=== PATIENT | female | born 1950 | race Caucasian/White ===

== ENCOUNTER 2020-05-09 12:45 | Emergency (ER) | payer MEDICARE, OTHER ==
[2020-05-09] MEDS ORDERED: Sodium Chloride 0.9% 1000 ML 1,000 ML IV STA (12:50)
[2020-05-09] MEDS ORDERED: BENADRYL 50 MG/ML IV ONE (12:50)
[2020-05-09] MEDS ORDERED: Inapsine 5 MG/2 ML IV ONE (12:50)
[2020-05-09] MEDS ORDERED: ANTIVERT 25 MG PO ONE (12:51)
[2020-05-09 13:47] LABS: Absolute Neutrophil Ct (ANC) 10.78 (1.4-6.9); BASOPHIL % 0.3 % (0.0-0.4); Basophil (Absolute #) 0.04 (0-0.4); Eosinophil % 0.9 % (0.00-5.0); Eosinophil (Absolute #) 0.12 (0-0.5); Hematocrit 40.5 % (35-47); Hemoglobin 12.9 gm/dl (12.0-16.0); Lymphocyte (Absolute #) 1.18 (1.0-4.6); Mean Cell Volume 92.5 fl (78-100); Mean Corpuscular Hemoglobin 29.5 pg (26-32); Mean Corpuscular Hgb Concent. 31.9 g/dl (32-36); Mean Platelet Volume 10.3 fl (7.5-11.0); Monocyte (Absolute #) 0.99 (0.0-1.3); Monocytes % 7.6 % (0.0-12.0); Neutrophil % 82.2 % (36.0-66.0); Platelet Count 229 K/mm3 (150-450); Red Blood Count 4.38 M/mm3 (4.1-5.4); Red Cell Distribution Width 15.8 % (11.5-14.0); White Blood Count 13.1 K/mm3 (4.0-10.5)
--- NOTE | 2020-05-09 14:09 | ERPHSYRPT ---
- History of Present Illness Patient Subjective Stated Complaint: " I have been feeling off balance and don' t know why. I basically live at home alone and sometimes it worries me because sometimes I need help to the bathroom and stuff. A week or so ago I thought I had a ear infection but my ear doesn't hurt now. I'm not in any pain but I do feel like I have nausea and I have been dry heaving this morning." Triage Nursing Assessment: Pt presents to ER with complaints of dizziness and insability. Pt is alert and oriented x 3. Pupils PERRL. Denies any recent falls or injury. Pt skin is pink/warm/dry. Pt denies any pain. Resp are easy and unlabored. Lung sounds clear and equal throughout. Pt denies cough. Abd is soft and nontender. Pt does state she has nausea and has been dry heaving today. Pt denies fever, chills, or body aches. Noted that pt is constantly moving her feet while laying in bed, denies being cold. Appears anxious. Pulses present x 4 extremities strong. States has unsteady and weak gait. ASSESSMENT AND TRIAGE COMPLETED BY CATHRYN ANGELA RN mistakenly done on ROYCE ARMENTA'S [employer] log on. Physician History: Patient is here with dizziness. She does describe symptoms of vertigo for the past 3 days. States that she is asymptomatic when she lays flat. She states that when she sits up and looks to her left is made worse. She has no falls or other trauma. Patient states that she has no chest pain, shortness of breath, nausea, vomiting. States that she has never been diagnosed with vertigo or had episodes of dizziness in the past. Location: generalized Quality: dizziness and vertigo Radiation: none Severity: moderate Duration: 3 days Timing: suddenly Modifying factors/associated signs and symptoms: none tried Timing/Duration: today Severity: mild Allergies/Adverse Reactions: fentanyl Allergy (Severe, Verified 05/09/20 13:03) Shortness of Breath acetaminophen [From Vicodin] Adverse Reaction (Mild, Verified 05/09/20 13:03) Nausea hydrocodone bitartrate [From Vicodin] Adverse Reaction (Mild, Verified 05/09/20 13:03) Nausea meperidine HCl [From Demerol] Adverse Reaction (Mild, Verified 05/09/20 13:03) Nausea Sulfa (Sulfonamide Antibiotics) [Sulfa(Sulfonamide Antibiotics)] Adverse Reaction (Mild, Verified 05/09/20 13:03) Nausea Home Medications: Levothyroxine Sodium 125 Mcg [Synthroid 125 Mcg] 137 mcg PO DAILY 09/21/13 [History] Meclizine HCl 25 mg PO QIDPRN PRN 09/21/13 [History] Duloxetine HCl [Cymbalta] 60 mg PO DAILY 02/27/15 [History] ALPRAZolam [Alprazolam] 05/09/20 [History] Aspirin 81 gm Chew [Baby Aspirin 81 mg Chew] 05/09/20 [History] Bupropion HCl [Wellbutrin Xl] 300 mg PO DAILY 05/09/20 [History] Carvedilol 3.125 mg [Coreg 3.125 MG] 05/09/20 [History] Cetirizine HCl [Zyrtec] 5 mg PO DAILY PRN PRN 05/09/20 [History] Clopidogrel Bisulfate [Plavix] 75 tab PO DAILY 05/09/20 [History] Glycerin [Colace] 1 tab RC DAILY 05/09/20 [History] Nitroglycerin 0.4 mg SL Q4H PRN PRN 05/09/20 [History] Oxycodone HCl/Acetaminophen [Oxycodon-Acetaminophen 2.5-300] 2 mg PO QID [History] Pantoprazole 20 mg [Protonix 20MG Tablet] 40 mg PO DAILY 05/09/20 [History ] Rosuvastatin Calcium [Crestor] 20 mg PO DAILY 05/09/20 [History] lisinopriL [Zestril] 2.5 tab PO DAILY 05/09/20 [History] Hx Tetanus, Diphtheria Vaccination/Date Given: Yes Hx Influenza Vaccination/Date Given: Yes Hx Pneumococcal Vaccination/Date Given: Yes Immunizations Up to Date: Yes Travel Risk - International Travel Have you traveled outside of the country in past 3 weeks: No - Coronavirus Screening Close contact with a COVID-19 positive Pt in past 14-21 Days: No - Review of Systems Constitutional: No Fever, No Chills Eyes: No Symptoms Ears, Nose, & Throat: No Symptoms Respiratory: No Cough, No Dyspnea Cardiac: No Chest Pain, No Edema, No Syncope Abdominal/Gastrointestinal: No Abdominal Pain, No Nausea, No Vomiting, No Diarrhea Genitourinary Symptoms: No Dysuria Musculoskeletal: No Back Pain, No Neck Pain Skin: No Rash Neurological: Dizziness, No Focal Weakness, No Sensory Changes Psychological: No Symptoms Endocrine: No Symptoms All Other Systems: Reviewed and Negative - Past Medical History Pertinent Past Medical History: Yes Neurological History: No Pertinent History ENT History: No Pertinent History Cardiac History: High Cholesterol, Myocardial Infarction (HI) Respiratory History: Bronchitis Endocrine Medical History: Diabetes Type II, Hypothyroidism Musculoskeletal History: Osteoarthritis GI Medical History: Diverticulitis History: Other Psycho-Social History: Anxiety, Depression Female Reproductive Disorders: Endometriosis Other Medical History: Chronic back pain, kidney stones, 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 PAIN IMPLANT on left side for back/spine, pancreatitis after cholecystectomy - Social History Smoking Status: Never smoker Exposure to second hand smoke: No Drug Use: none Patient Lives Alone: Yes - Nursing Vital Signs Nursing Vital Signs: Initial Vital Signs Temperature 98.9 F 05/09/20 12:50 Pulse Rate 106 H 05/09/20 12:50 Respiratory Rate 24 05/09/20 12:50 Blood Pressure 177/85 05/09/20 12:50 O2 Sat by Pulse Oximetry 97 05/09/20 12:50 Pain Scale Pain Intensity 0 - Physical Exam General Appearance: no apparent distress, alert Eye Exam: PERRL/EOMI, eyes nml inspection Ears, Nose, Throat Exam: normal ENT inspection, TMs normal, pharynx normal, moist mucous membranes Neck Exam: normal inspection, non-tender, supple, full range of motion Respiratory Exam: normal breath sounds, lungs clear, No respiratory distress Cardiovascular Exam: regular rate/rhythm, normal heart sounds, normal peripheral pulses Gastrointestinal/Abdomen Exam: soft, normal bowel sounds, No tenderness, No mass Back Exam: normal inspection, normal range of motion, No CVA tenderness, No vertebral tenderness Extremity Exam: normal inspection, normal range of motion, pelvis stable Neurologic Exam: alert, oriented x 3, cooperative, normal mood/affect, nml cerebellar function, nml station & gait, sensation nml, No motor deficits Skin Exam: normal color, warm, dry, No rash Lymphatic Exam: No adenopathy SpO2 Interpretation: normal SpO2: 97 Comments: 05/09/20 14:08 Motor: There is no pronator drift of out-stretched arms. Muscle bulk and tone are normal. Strength is full bilaterally. Reflexes: Reflexes are 2+ and symmetric at the biceps, triceps, knees, and ankles. Plantar responses are flexor. Sensory: Light touch sense are intact in bilateral upper and lower extremities. There is no sign of neglect. Coordination: Rapid alternating movements are intact. There is no dysmetria on [id number] and [id number]. There are no abnormal or extraneous movements. Romberg is absent. Gait/Stance: Posture is normal. Gait is steady with normal steps, base, arm swing, and turning. Heel and toe walking are normal. Tandem gait is normal. Symptoms reproducible with Asha maneuver Ordered Tests: Active Orders 24 hr Category Date Time Status Keel Press Operator STAT Care 05/09/20 12:51 Active EKG-ER Only STAT Care 05/09/20 12:50 Active IV Insertion STAT Care 05/09/20 12:50 Active ABDOMEN AND PELVIS W CONTRAST [CT] Stat Exams 05/09/20 15:20 Completed CHEST 2 VIEWS (PA AND LAT) Stat Exams 05/09/20 12:50 Completed HEAD WITHOUT CONTRAST [CT] Stat Exams 05/09/20 12:51 Completed CBC W DIFF Stat Lab 05/09/20 13:30 Completed CMP Stat Lab 05/09/20 12:50 Completed CULTURE,URINE Stat Lab 05/09/20 15:10 Received NT PRO BNP Stat Lab 05/09/20 12:50 Completed TROPONIN Q3H Lab 05/09/20 13:45 Completed TROPONIN Q3H Lab 05/09/20 15:44 Completed TROPONIN Q3H Lab 05/09/20 19:00 Ordered TROPONIN Q3H Lab 05/09/20 22:00 Ordered TROPONIN Q3H Lab 05/10/20 01:00 Ordered UA W/RFX UR CULTURE Stat Lab 05/09/20 15:10 Completed Medication Summary Discontinued Medications Generic Name Dose Route Start Last Admin Trade Name Freq PRN Reason Stop Dose Admin Aspirin 324 mg 05/09/20 16:47 05/09/20 16:51 Baby Aspirin 81 Mg Chew PO 05/09/20 16:48 324 mg STAT ONE Administration Diphenhydramine HCl 25 mg 05/09/20 12:50 05/09/20 14:22 Benadryl 50 Mg/Ml IV 05/09/20 12:51 25 mg STAT ONE Administration Diphenhydramine HCl Confirm 05/09/20 14:17 Benadryl 50 Mg/Ml Administered 05/09/20 14:18 Dose 50 mg .ROUTE .STK-MED ONE Droperidol 1.25 mg 05/09/20 12:50 05/09/20 14:21 Inapsine 5 Mg/2 Ml IV 05/09/20 12:51 1.25 mg STAT ONE Administration Droperidol Confirm 05/09/20 14:16 Inapsine 5 Mg/2 Ml Administered 05/09/20 14:17 Dose 5 mg .ROUTE .STK-MED ONE Sodium Chloride 1,000 mls @ 999 mls/hr 05/09/20 12:50 05/09/20 15:52 Sodium Chloride 0.9% 1000 Ml IV 05/09/20 13:50 Infused .Q1H1M STA Infusion Sodium Chloride Confirm 05/09/20 14:17 Sodium Chloride 0.9% 1000 Ml Administered 05/09/20 14:18 Dose 1,000 mls @ ud .ROUTE .STK-MED ONE Meclizine HCl 25 mg 05/09/20 12:51 05/09/20 14:22 Antivert 25 Mg PO 05/09/20 12:52 25 mg STAT ONE Administration Meclizine HCl Confirm 05/09/20 14:17 Antivert 25 Mg Administered 05/09/20 14:18 Dose 25 mg .ROUTE .STK-MED ONE Lab/Rad Data: Laboratory Result Diagrams 05/09/20 13:30 05/09/20 12:50 Laboratory Results 05/09/20 05/09/20 05/09/20 Range/Units 15:44 15:10 13:45 WBC (4.0-10.5) K/mm3 RBC (4.1-5.4) M/mm3 Hgb (12.0-16.0) gm/dl Hct (35-47) % MCV (78-100) fl MCH (26-32) pg MCHC (32-36) g/dl RDW (11.5-14.0) % Plt Count (150-450) K/mm3 MPV (7.5-11.0) fl Gran % (36.0-66.0) % Eos # (Auto) (0-0.5) Absolute Lymphs (auto) (1.0-4.6) Absolute Monos (auto) (0.0-1.3) Lymphocytes % (24.0-44.0) % Monocytes % (0.0-12.0) % Eosinophils % (0.00-5.0) % Basophils % (0.0-0.4) % Absolute Granulocytes (1.4-6.9) Basophils # (0-0.4) Sodium (137-145) mmol/L Potassium (3.5-5.1) mmol/L Chloride (98-107) mmol/L Carbon Dioxide (22-30) mmol/L Anion Gap (5-15) MEQ/L BUN (7-17) mg/dL Creatinine (0.52-1.04) mg/dL Estimated GFR ML/MIN Glucose (74-106) mg/dL Calcium (8.4-10.2) mg/dL Total Bilirubin (0.2-1.3) mg/dL AST (14-36) U/L ALT (0-35) U/L Alkaline Phosphatase (38-126) U/L Troponin I < 0.012 < 0.012 (0.000-0.034) ng/mL NT-Pro-B Natriuret Pep (0-900) pg/mL Serum Total Protein (6.3-8.2) g/dL Albumin (3.5-5.0) g/dL Urine Color YELLOW (YELLOW) Urine Appearance SLIGHTLY CLOUDY (CLEAR) Urine pH 5.0 (5-6) Ur Specific [place] 1.020 (1.005-1.025) Urine Protein 30 (Negative) Urine Ketones NEGATIVE (NEGATIVE) Urine Blood NEGATIVE (0-5) Ramez/ul Urine Nitrite NEGATIVE (NEGATIVE) Urine Bilirubin NEGATIVE (NEGATIVE) Urine Urobilinogen 2 (0-1) mg/dL Ur Leukocyte Esterase MODERATE (NEGATIVE) Urine WBC (Auto) 51-100 (0-5) /HPF Urine RBC (Auto) 3-5 (0-2) /HPF U Epithel Cells (Auto) RARE (FEW) /HPF Urine Bacteria (Auto) FEW (NEGATIVE) /HPF Urine Mucus (Auto) SLIGHT (NEGATIVE) /HPF Urine Culture Reflexed YES (NO) Urine Glucose NEGATIVE (NEGATIVE) mg/dL 05/09/20 05/09/20 Range/Units 13:30 12:50 WBC 13.1 H (4.0-10.5) K/mm3 RBC 4.38 (4.1-5.4) M/mm3 Hgb 12.9 (12.0-16.0) gm/dl Hct 40.5 (35-47) % MCV 92.5 (78-100) fl MCH 29.5 (26-32) pg MCHC 31.9 L (32-36) g/dl RDW 15.8 H (11.5-14.0) % Plt Count 229 (150-450) K/mm3 MPV 10.3 (7.5-11.0) fl Gran % 82.2 H (36.0-66.0) % Eos # (Auto) 0.12 (0-0.5) Absolute Lymphs (auto) 1.18 (1.0-4.6) Absolute Monos (auto) 0.99 (0.0-1.3) Lymphocytes % 9.0 L (24.0-44.0) % Monocytes % 7.6 (0.0-12.0) % Eosinophils % 0.9 (0.00-5.0) % Basophils % 0.3 (0.0-0.4) % Absolute Granulocytes 10.78 H (1.4-6.9) Basophils # 0.04 (0-0.4) Sodium 139 (137-145) mmol/L Potassium 4.2 (3.5-5.1) mmol/L Chloride 102 (98-107) mmol/L Carbon Dioxide 25 (22-30) mmol/L Anion Gap 16.9 H (5-15) MEQ/L BUN 15 (7-17) mg/dL Creatinine 0.63 (0.52-1.04) mg/dL Estimated GFR > 60.0 ML/MIN Glucose 150 H (74-106) mg/dL Calcium 9.4 (8.4-10.2) mg/dL Total Bilirubin 1.60 H (0.2-1.3) mg/dL AST 51 H (14-36) U/L ALT 43 H (0-35) U/L Alkaline Phosphatase 116 (38-126) U/L Troponin I (0.000-0.034) ng/mL NT-Pro-B Natriuret Pep 27.2 (0-900) pg/mL Serum Total Protein 7.7 (6.3-8.2) g/dL Albumin 4.5 (3.5-5.0) g/dL Urine Color (YELLOW) Urine Appearance (CLEAR) Urine pH (5-6) Ur Specific [place] (1.005-1.025) Urine Protein (Negative) Urine Ketones (NEGATIVE) Urine Blood (0-5) Ramez/ul Urine Nitrite (NEGATIVE) Urine Bilirubin (NEGATIVE) Urine Urobilinogen (0-1) mg/dL Ur Leukocyte Esterase (NEGATIVE) Urine WBC (Auto) (0-5) /HPF Urine RBC (Auto) (0-2) /HPF U Epithel Cells (Auto) (FEW) /HPF Urine Bacteria (Auto) (NEGATIVE) /HPF Urine Mucus (Auto) (NEGATIVE) /HPF Urine Culture Reflexed (NO) Urine Glucose (NEGATIVE) mg/dL - Progress Progress Note: 05/09/20 17:33 We'll obtain basic labs, fluids, EKG, troponin, chest x-ray - EKG shows no ST changes - my read. See full read below. - O2 saturations consistently greater than 95%. - CXR shows no pneumonia, pneumothorax - my read - no other obvious lab abnormalities Reevaluation: Patient feeling improved overall. Her first troponin was negative. We will repeat a troponin on her. She was able to walk around the emergency department without any more feelings of dizziness. Most likely peripheral vertigo. We did treat her with peripheral vertigo medication. Patient did have elevated liver enzymes and elevated white blood cell count. Previously had her gallbladder out. Given that she has already had her gallbladder out I did look back to her other labs. She does have a history of elevated liver enzymes and white blood cell count. Therefore, we will obtain a CT scan looking for choledocholithiasis. Head CT normal as well. Reevaluation: Repeat troponin returned negative. Patient has now had 2- troponins with her symptoms starting greater than 3 days ago. Therefore, I think much like is likely to be a cardiac ischemic issue. Patient again was able to ambulate without difficulty. CT scan returned showing fatty liver without choledocholithiasis. We will discharge patient home at this point in time. Patient will need close follow-up with her PCP. Return here for new or changing symptoms. Neurological reevaluation in 24 to 48 hours with PCP. Return here if she is unable to see her PCP Plan of care was discussed with patient's parents and all questions answered. They are agreeable to be discharged home and both verbal and printed discharge instructions were provided. The patient's parents agreed to seek outpatient follow up as discussed. They were given strict instructions to return to the emergency department for worsening symptoms or any other emergent concerns. They verbalized understanding. Counseled pt/family regarding: lab results, diagnosis, need for follow-up, rad results - Departure Departure Disposition: Home Clinical Impression: Vertigo Condition: Stable Critical Care Time: No Referrals: ASTER MARSHALL DO [Primary Care Provider] - Instructions: Vertigo (a Type of Dizziness) (DC) Prescriptions: Meclizine HCl 25 mg [Antivert 25 mg] 25 mg PO DAILY PRN PRN 10 Days #14 tablet PRN Reason: Dizziness
[2020-05-09 14:12] LABS: ALBUMIN 4.5 g/dL (3.5-5.0); ALKALINE PHOSPHATASE 116 U/L (38-126); ANION GAP 16.9 MEQ/L (5-15); BLOOD UREA NITROGEN 15 mg/dL (7-17); CHLORIDE 102 mmol/L (98-107); Calcium 9.4 mg/dL (8.4-10.2); Carbon Dioxide 25 mmol/L (22-30); Creatinine 1 0.63 mg/dL (0.52-1.04); Glucose 150 mg/dL (74-106); NT PRO BNP 27.2 pg/mL (0-900); Potassium 4.2 mmol/L (3.5-5.1); SGOT/AST 51 U/L (14-36); SGPT/ALT 43 U/L (0-35); SODIUM 139 mmol/L (137-145); Total Protein 7.7 g/dL (6.3-8.2)
[2020-05-09] MEDS ORDERED: Inapsine 5 MG/2 ML ONE (14:16)
[2020-05-09] MEDS ORDERED: ANTIVERT 25 MG ONE (14:17)
[2020-05-09] MEDS ORDERED: BENADRYL 50 MG/ML ONE (14:17)
[2020-05-09] MEDS ORDERED: Sodium Chloride 0.9% 1000 ML 1,000 ML ONE (14:17)
--- NOTE | 2020-05-09 14:29 | XRAY ---
Exam: CT of the head without IV contrast from 05/09/2020. CTDI: 53.92 mGy Comparison: CT of the head without IV contrast from 09/21/2013. Indication: 70-year-old female with dizziness and shortness of breath since Tuesday. Nausea. Technique: Non-IV contrast axial images were obtained through the brain. Reconstructed coronal and sagittal images were created and reviewed. Findings: Some hyperostosis frontalis interna is seen on the CT spring bender images. The ventricles appear within normal limits of size. No focal mass effect or midline shift is seen. No acute intracranial bleed or abnormal extra-axial fluid collection is seen. The hayward matter-white matter interfaces appear unremarkable. No low attenuation infarct is seen within a major cerebral or cerebellar artery distribution. There is mild prominence of the cortical sulci, sylvian fissures, and basilar cisterns, not inappropriate for the patient's age. No acute fracture of the calvarium of the skull is seen. I again note hyperostosis frontalis interna. The visualized paranasal sinuses are essentially clear. There appears to be an impacted upper posterior molar tooth on the left, which in retrospect, is unchanged from 2012. The mastoid air cells and middle ear cavities appear unremarkable. There is mild deviation of the nasal septum toward the left. The orbits appear unremarkable. Impression: 1. No evidence of acute intracranial bleed, developing infarct, or other acute intracranial process is seen. 2. Hyperostosis frontalis interna.
--- NOTE | 2020-05-09 14:33 | XRAY ---
Exam: Two-view chest from 05/09/2020. Comparison: AP 80 upright portable chest film from 05/31/2016. Indication: 70-year-old female with shortness of breath and dizziness. Findings: Upright PA and lateral chest films are submitted for evaluation. The transverse heart size is normal. Minimal vascular calcification is seen within the aortic arch. There is mild tortuosity of the descending thoracic aorta. EKG leads are noted in place. The remainder the adan and mediastinal structures appear unremarkable. The lungs are adequately inflated. A few small scattered calcified granulomas are seen. No air space infiltrates, vascular congestion, pneumothorax, or pleural fluid is seen. The bones are demineralized. A lead from a neurostimulator is seen extending superiorly into the lower mid thoracic spinal canal. Moderate osteoarthritic spurring is seen within the lower thoracic spine. Impression: 1. No acute cardiopulmonary disease is seen. The findings are unchanged from 05/31/2016.
[2020-05-09 15:18] LABS: Appearance SLIGHTLY CLOUDY (CLEAR); Bacteria FEW /HPF (NEGATIVE); Bilirubin NEGATIVE (NEGATIVE); Blood NEGATIVE Ery/ul (0-5); Epithelial Cells RARE /HPF (FEW); Glucose NEGATIVE (NEGATIVE); Ketones NEGATIVE (NEGATIVE); Leukocyte Esterase MODERATE (NEGATIVE); Mucus SLIGHT /HPF (NEGATIVE); Nitrite NEGATIVE (NEGATIVE); Protein,Urine Dip 30 (Negative); Urobilinogen 2 mg/dL (0-1); WBC 51-100 /HPF (0-5)
[2020-05-09] MEDS ORDERED: BABY ASPIRIN 81 MG CHEW PO ONE (16:47)
--- NOTE | 2020-05-09 17:11 | XRAY ---
Exam: CT of the abdomen and pelvis with IV contrast from 05/09/2020. Total DLP: 1436.76 mGy-cm Comparison: CT of the abdomen and pelvis with IV contrast from 03/23/2016. Indication: 70-year-old female with elevated liver function tests and white blood cell count, dizziness, nausea. Technique: Post-IV contrast axial images were obtained through the abdomen and pelvis during automated injection of 80 ML's of Isovue 370 contrast material. No oral contrast was given. Reconstructed coronal and sagittal images were created and reviewed. Findings: The visualized lung bases reveals some minimal scarring/atelectasis at the posterior medial right lung base. This appears less pronounced as compared to 03/23/2016. A small subpleural calcified granuloma is seen at the posterior left lung base. The heart size is normal. Three-vessel coronary artery vascular calcification is seen. There appears to be some fluid within the distal thoracic esophageal lumen. This may be due to GERD. The right lobe of the liver appears prominent which may be due to a Arlin's lobe. This is unchanged. Otherwise, the liver is remarkable for mild diffuse fatty infiltration. No focal hepatic mass is seen. Surgical clips consistent with prior cholecystectomy are noted. No abnormal biliary duct distention is seen. The spleen is remarkable for a few small calcified granulomas. The spleen measures 13.0 cm in greatest craniocaudal dimension on coronal image #96 which is borderline enlarged. No focal splenic mass seen. There appears to be a tortuous varicosity within the anterior abdomen on axial images #34 through #44. This appears unchanged in retrospect. The pancreas appears of unremarkable size and attenuation. No mass, pancreatic calcifications, or pancreatic duct distention is seen. I cannot exclude a couple small duodenal diverticula on axial images #42 and #43. The adrenal glands appear unremarkable. The kidneys appear of unremarkable size and reveal no calculi, mass, or hydronephrosis. Both kidneys function on delay images. The visualized ureters appear unremarkable. Incidentally, a metallic power pack for a neurostimulator overlies the lateral left abdomen within the subcutaneous fat and causes some artifactual streak artifact adjacent to it. The neural stimulator lead enters the spinal canal at the thoracolumbar junction and extends up to the upper T8 level. This is unchanged from 2016. Moderate atherosclerotic vascular calcification is seen within the abdominal aorta. No abdominal aortic aneurysm is seen. There is no abnormal retroperitoneal lymphadenopathy. I again see a slight increase attenuation of the upper abdominal deep mesenteric fat with a few scattered small mesenteric lymph nodes. This is unchanged from 03/23/2016 and may reflect mild chronic mesenteric adenitis/panniculitis. There is no free intraperitoneal air or ventral abdominal wall hernia. I see no definite findings of appendicitis within the right lower quadrant. The bowel appears nonobstructed. There is mild diverticulosis without evidence of diverticulitis within the descending colon and sigmoid colon. A mild amount of scattered colonic stool is evident. I see no free intraperitoneal fluid within the pelvis. The uterus is surgically absent. The urinary bladder is distended and appears unremarkable. No enlarged pelvic lymph nodes are seen. The skeleton reveals a minimal levoscoliosis centered at L1-L2. Degenerative changes are seen throughout the lower thoracolumbar spine. There appears to be bony ankylosis between the spinous processes posteriorly on the sagittal images within the lower thoracolumbar spine. This is unchanged. There is moderate to marked degenerative disc disease at both L4-L5 and L5-S1 representing no change. Moderate acetabular spurring is seen within each hip representing no change. Impression: 1. Mild diffuse fatty infiltration (i.e. steatosis) without focal liver lesion or biliary duct distention. The patient is status post cholecystectomy. The right lobe of the liver is prominent which may be due to a Arlin's lobe. This is unchanged. 2. Borderline splenomegaly. I also note a stable varicosity within the upper anterior abdomen. 3. Fluid-filled distal thoracic esophagus which may be due to GERD. 4. Mild descending colon and sigmoid colon diverticulosis without evidence of acute diverticulitis. This is stable. 5. Status post cholecystectomy and hysterectomy. 6. Stable mild mesenteric adenitis/panniculitis. 7. Skeletal findings, as discussed above.
[2020-05-09 17:46] VITALS: BP 147/68; PULSE 84; O2SAT 98
== END 2020-05-09 17:48 | disposition home or self-care (01) ==
LOC: ED 12:45
DX: R42 Dizziness and giddiness (principal); Z79.899 Other long term (current) drug therapy; E78.00 Pure hypercholesterolemia, unspecified; I25.2 Old myocardial infarction; E11.9 Type 2 diabetes mellitus without complications; E03.9 Hypothyroidism, unspecified; M19.90 Unspecified osteoarthritis, unspecified site; F41.9 Anxiety disorder, unspecified; F32.9 Major depressive disorder, single episode, unspecified; Z87.442 Personal history of urinary calculi; Z87.898 Personal history of other specified conditions
CPT/HCPCS: 36000; 36415; 70450; 71046; 74177; 80053; 81001; 83880; 84484; 85025; 87086; 93005; 93041; 96360; 96374; 96375; 99285; J1200; A9270-GY